=== PATIENT | female | born 1960 | race African-American/Black ===

== ENCOUNTER 2022-10-30 19:04 | Emergency (ER) | payer OTHER, SELFPAY ==
[2022-10-30 19:18] VITALS: BP 135/92; PULSE 76; RESP 16; TEMP 36.5; O2SAT 99
--- NOTE | 2022-10-30 19:29 | ED.EXTPRO ---
HPI - Extremity Problem General Chief complaint: Extremity Problem,Nontraumatic Stated complaint: Right Leg Swelling Time Seen by Provider: 10/30/22 19:33 Mode of arrival: ambulatory Limitations: no limitations History of Present Illness HPI Narrative: 61 year old female presents with concern for RLL swelling, pain, with some tingling in the foot. She denies injury or trauma. She reports she elevates her leg when she is sleeping. She denies history of similar swelling in the past. She reports the swelling got larger today. She denies redness, warmth, open skin. She reports a cramping sensation in her calf Complaint: extremity swelling Related Data Home Medications Medication Instructions Recorded Confirmed ergocalciferol (vitamin D2) 1,250 1,250 mcg PO WEEKLY 10/30/22 10/30/22 mcg (50,000 unit) capsule latanoprost 0.005 % eye drops See Rx Instructions .Route .COMPLEX 10/30/22 10/30/22 Allergies Allergy/AdvReac Type Severity Reaction Status Date / Time No Known Allergies Allergy Verified 10/30/22 19:27 Review of Systems Review of Systems: CONSTITUTIONAL: Denies malaise, chills, sweats, or fever. CARDIOVASCULAR: Denies chest pain, palpitations RESPIRATORY: Denies cough or dyspnea. SKIN: Denies warmth, redness, open skin MUSCULOSKELETAL: Reports right lower leg swelling, cramping NEUROLOGIC: Reports mild right foot tingling All systems reviewed & are unremarkable except as noted in HPI and below PMFSH Comments At time of signature, agree with nursing past medical, surgical, social and family history. There is no relevant family history pertinent to the presenting complaint Exam Narrative: GENERAL: Well-appearing, well-nourished, and in no acute distress. HEAD: Normocephalic, atraumatic. EYES: PERRLA, sclera clear ENT: Nares clear. Mucous membranes moist. NECK: Supple. CHEST: No respiratory distress. Speaks in full sentences. HEART: Regular rate and rhythm. Normal peripheral pulses. EXTREMITIES: Right lower extremity has grossly normal range of motion, grossly Normal strength and sensation. Right lower extremity is 17.5 cm with nonpitting edema, left lower extremity is 14.5 cm SKIN: Warm, dry, no visible rash. No induration, warmth noted NEURO: Alert and oriented x3. PSYCH: Normal mood and affect Course Course Emergency Course: Patient is, understands and agrees to reasons to be transferred to the emergency room. Patient agrees to proceed directly to the emergency department. Portions of this record may have been created with voice recognition software Level of Care: Express Care Visit Vital Signs Vital signs: Vital Signs Temperature 97.7 F 10/30/22 19:18 Pulse Rate 76 10/30/22 19:18 Respiratory Rate 16 10/30/22 19:18 Blood Pressure 135/92 H 10/30/22 19:18 Pulse Oximetry 99 10/30/22 19:18 Oxygen Delivery Room Air 10/30/22 19:18 Temperature 97.7 F 10/30/22 19:18 Pulse Rate 76 10/30/22 19:18 Respiratory Rate 16 10/30/22 19:18 Blood Pressure 135/92 H 10/30/22 19:18 Pulse Oximetry 99 10/30/22 19:18 Oxygen Delivery Room Air 10/30/22 19:18 Reviewed. Transfer Transfered to: [facility] Transportation: Other (Private vehicle) Transfer rationale: Rule out DVT Accepting physician: Bernice MDM - Extremity (Nontraumatic) MDM Narrative Medical decision making narrative: Exam findings or further evaluation emergency room; patient is non-toxic appearing and is in no distress. Critical Care Time Critical Care Time Critical Care Time: No Discharge Plan Discharge Clinical Impression: Swelling of right lower extremity Patient Disposition: Acute Care Hospital Condition: Stable Prescriptions: No Action latanoprost 0.005 % drops See Rx Instructions .ROUTE .COMPLEX Rx Instructions: Rx ergocalciferol (vitamin D2) 1,250 mcg (50,000 unit) capsule 1,250 mcg PO WEEKLY Follow-up/Referrals: PHYSICIANJODY
== END 2022-10-30 19:45 | disposition short-term general hospital (02) ==
PROVIDERS: Emergency Provider Nurse Practitioner
DX: R22.41 Localized swelling, mass and lump, right lower limb (principal); H40.9 Unspecified glaucoma
CPT/HCPCS: 99202; G0463

== ENCOUNTER 2022-10-30 20:02 | Emergency (ER) | payer OTHER, SELFPAY ==
--- NOTE | ~2022-10-30 | US_ITS ---
EXAMINATION: US venous doppler LE RT DATE: 10/30/2022 21:05 INDICATION: pain and swelling swelling, eval for DVT . TECHNIQUE: Grayscale images without and with compression and Doppler images of the right lower extrem ity veins were obtained. COMPARISON: None FINDINGS: The right common femoral vein, profunda (deep) femoral vein, femoral vein, popliteal vein, peroneal v ein, posterior tibial veins, gastrocnemius vein, and greater saphenous vein are patent. IMPRESSION: Patent right lower extremity veins. No evidence of deep venous thrombosis. Reviewed, dictated and finalized at location K.
[2022-10-30 20:15] VITALS: BP 134/83; PULSE 75; RESP 16; TEMP 36.8; O2SAT 100
[2022-10-30 20:32] LABS: Basophils Absolute Auto 0.1 K/mm3 (0.0-0.1); Basophils Percent Auto 0.9 % (0.2-1.2); Eosinophils Absolute Auto 0.3 K/mm3 (0-0.3); Eosinophils Percent Auto 4.6 % (0-4.4); Hematocrit 39.8 % (37.0-47.0); Hemoglobin 12.7 g/dL (12.0-15.0); Lymphocytes Absolute Auto 2.56 K/mm3 (0.9-3.2); Lymphocytes Percent Auto 43.8 % (18.3-44.2); Mean Corpuscular HGB Conc 31.9 g/dl (32-36); Mean Corpuscular Hemoglobin 29.4 pg (26-34); Mean Corpuscular Volume 92.1 fl (80-100); Mean Platelet Volume 9.7 fl (7.4-10.4); Monocytes Absolute Auto 0.6 K/mm3 (0.1-0.6); Monocytes Percent Auto 9.4 % (2.6-8.5); Neutrophils Absolute Auto 2.4 K/mm3 (1.3-6.7); Neutrophils Percent Auto 41.3 % (45.5-73.1); Platelet Count Result 254 k/mm3 (150-375); Red Blood Count 4.32 M/mm3 (4.2-5.4); Red Cell Distribution Width 13.2 % (11.5-14.5); White Blood Count 5.9 K/mm3 (4.5-10.0)
[2022-10-30 20:42] LABS: Alanine Aminotransferase 16 U/L (6-35); Albumin Level 4.4 g/dL (3.5-5.1); Alkaline Phosphatase 69 U/L (38-126); Anion Gap 5 mmol/L (8-16); Aspartate Amino Transferase 28 U/L (14-36); Bilirubin,Total 0.6 mg/dL (0.2-1.3); Blood Urea Nitrogen 16 mg/dL (7-17); Calcium 9.6 mg/dL (8.4-10.2); Carbon Dioxide 29 mmol/L (22-30); Chloride 104 mmol/L (98-107); Estimated CRCL calculation 70 ml/min; Estimated Glomerular Filt Rate > 60; Glucose 88 mg/dL (65-110); Potassium 4.3 mmol/L (3.4-5.0); Sodium 138 mmol/L (137-145)
[2022-10-30 20:46] LABS: INR 1.2; Prothrombin Time 15.3 Seconds (11.1-14.7)
[2022-10-30 20:47] LABS: Partial Thromboplastin Time 39.9 SECONDS (22.3-36.8)
--- NOTE | 2022-10-30 21:52 | ED.GENADULT ---
HPI - General Adult General Chief complaint: Recheck/Abnormal Lab/Rx Stated complaint: RLE r/o DVT Time Seen by Provider: 10/30/22 21:31 History of Present Illness HPI narrative: Patient 61-year-old female who presents the emergency department with chief complaint of right calf swelling. The patient reports that for about a week she has noticed that her right calf with swelling patient does report that she sits a lot at work reports no trauma reports no long travel. The patient was seen in urgent care and was sent to the emergency department for evaluation of possible DVT. The patient denies chest pain denies shortness of breath patient reports no prior history of thromboembolic disease Related Data Home Medications Medication Instructions Recorded Confirmed ergocalciferol (vitamin D2) 1,250 1,250 mcg PO WEEKLY 10/30/22 10/30/22 mcg (50,000 unit) capsule latanoprost 0.005 % eye drops See Rx Instructions .Route .COMPLEX 10/30/22 10/30/22 Allergies Allergy/AdvReac Type Severity Reaction Status Date / Time No Known Allergies Allergy Verified 10/30/22 19:27 Review of Systems Review of Systems: A 10 system review of systems was completed on the patient and is negative except for what is stated in the HPI. Nursing and ancillary documentation was reviewed. Exam Narrative: GENERAL: Well-appearing, well-nourished, and in no acute distress. HEAD: Normocephalic, atraumatic. EYES: PERRLA and EOMI. ENT: Nares clear, no rhinorrhea or epistaxis. Mucous membranes moist. NECK: Supple. CHEST: Clear to auscultation. No respiratory distress. HEART: Regular rate and rhythm. No murmur heard. Normal peripheral pulses. ABDOMEN: Soft, nontender, nondistended, normal active bowel sounds. EXTREMITIES: Normal range of motion. Trace edema right lower extremity. SKIN: Warm, dry, no rash. NEURO: No focal deficits. Alert and oriented x3. PSYCH: Normal mood and affect. Course Vital Signs Vital signs: Vital Signs Temperature 36.8 C 10/30/22 20:15 Pulse Rate 75 10/30/22 20:15 Respiratory Rate 16 10/30/22 20:15 Blood Pressure 134/83 10/30/22 20:15 Pulse Oximetry 100 10/30/22 20:15 Oxygen Delivery Room Air 10/30/22 20:15 Temperature 36.8 C 10/30/22 20:15 Pulse Rate 75 10/30/22 20:15 Respiratory Rate 16 10/30/22 20:15 Blood Pressure 134/83 10/30/22 20:15 Pulse Oximetry 100 10/30/22 20:15 Oxygen Delivery Room Air 10/30/22 20:15 Medical Decision Making MDM Narrative Medical decision making narrative: Differential diagnosis includes DVT, anemia, electrolyte abnormality, renal failure Laboratory studies were obtained the patient has had a normal CMP patient had a total protein of 8.0 renal function showed a creatinine 0.8 patient INR 1.2 CBC showed a hemoglobin of 12.7 Duplex of the right lower extremity showed no evidence of DVT Vital Signs Vital Signs: Vital Signs Temperature 36.8 C 10/30/22 20:15 Pulse Rate 75 10/30/22 20:15 Respiratory Rate 16 10/30/22 20:15 Blood Pressure 134/83 10/30/22 20:15 Pulse Oximetry 100 10/30/22 20:15 Oxygen Delivery Room Air 10/30/22 20:15 Temperature 36.8 C 10/30/22 20:15 Pulse Rate 75 10/30/22 20:15 Respiratory Rate 16 10/30/22 20:15 Blood Pressure 134/83 10/30/22 20:15 Pulse Oximetry 100 10/30/22 20:15 Oxygen Delivery Room Air 10/30/22 20:15 Lab Data 10/30/22 20:16 10/30/22 20:16 Labs: Lab Results 10/30/22 Range/Units 20:16 WBC 5.9 (4.5-10.0) K/mm3 RBC 4.32 (4.2-5.4) M/mm3 Hgb 12.7 (12.0-15.0) g/dL Hct 39.8 (37.0-47.0) % MCV 92.1 (80-100) fl MCH 29.4 (26-34) pg MCHC 31.9 L (32-36) g/dl RDW 13.2 (11.5-14.5) % Plt Count 254 (150-375) k/mm3 MPV 9.7 (7.4-10.4) fl Immature Gran % (Auto) 0.0 (0-0.5) % Neut % (Auto) 41.3 L (45.5-73.1) % Lymph % (Auto) 43.8 (18.3-44.2) % [place] % (Auto) 9.4 H (2.6-8.5) %
[2022-10-30 22:09] VITALS: BP 132/84; PULSE 82; RESP 15; O2SAT 100
== END 2022-10-30 22:10 | disposition home or self-care (01) ==
PROVIDERS: Emergency Provider Emergency Medicine
DX: M79.89 Other specified soft tissue disorders (principal)
CPT/HCPCS: 36415; 80053; 85025; 85610; 85730; 93971; 99284